=== PATIENT | male | born 1965 ===

== ENCOUNTER 2018-02-05 12:02 | Outpatient (CLI) | payer OTHER | END 2018-02-05 12:24 | disposition home or self-care, planned readmission (81) | LOC: RAD 12:02 | DX: R36.1 Hematospermia (principal) ==

== ENCOUNTER 2019-07-25 08:15 | Outpatient (CLI) | payer OTHER | END 2019-07-25 08:18 | disposition home or self-care (01) | LOC: SONOGRAMA 08:15 | DX: M12.861 Other specific arthropathies, not elsewhere classified, right knee (principal) ==

== ENCOUNTER 2019-07-27 10:21 | Outpatient (CLI) | payer OTHER | END 2019-07-27 10:34 | disposition home or self-care (01) | LOC: MRI 10:21 | DX: M12.861 Other specific arthropathies, not elsewhere classified, right knee (principal) | CPT/HCPCS: 73718 ==

== ENCOUNTER 2020-03-06 11:25 | Outpatient (CLI) | payer OTHER ==
[~2020-03-06 11:25] MED LIST: ATACAND32 MG
== END 2020-03-06 16:58 | disposition home or self-care (01) ==
LOC: OFIC 805 11:25
PROVIDERS: ATTEND Otolaryngology
DX: K21.9 Gastro-esophageal reflux disease without esophagitis (principal); H93.13 Tinnitus, bilateral

== ENCOUNTER → 2020-04-24 | Outpatient (CLI) | payer OTHER | END | disposition home or self-care (01) | LOC: OFIC 805 11:30 | PROVIDERS: ATTEND Otolaryngology | DX: K21.9 Gastro-esophageal reflux disease without esophagitis (principal); H93.13 Tinnitus, bilateral ==

== ENCOUNTER → 2020-05-22 | Outpatient (CLI) | payer OTHER | END | disposition home or self-care (01) | LOC: OFIC 805 09:44 | PROVIDERS: ATTEND Otolaryngology | DX: H93.13 Tinnitus, bilateral (principal); K21.9 Gastro-esophageal reflux disease without esophagitis; R09.89 Other specified symptoms and signs involving the circulatory and respiratory systems ==

== ENCOUNTER 2021-02-14 08:02 | Outpatient (CLI) | payer OTHER | END 2021-02-14 08:04 | disposition home or self-care (01) | LOC: SONOGRAMA 08:02 → MAMO-SONO 08:15 | PROVIDERS: ATTEND Internal Medicine Gastroenterology | DX: R10.84 Generalized abdominal pain (principal) ==